=== PATIENT | female | born 1975 | race Caucasian/White ===

== ENCOUNTER 2021-05-31 05:03 | Emergency (ER) | payer BC ==
[2021-05-31] MEDS ORDERED: ROPINIROLE HCL0.5 MG PO (05:19)
== END 2021-05-31 05:55 | disposition home or self-care (01) ==
LOC: ER1 05:03
DX: Z76.0 Encounter for issue of repeat prescription (principal); E03.9 Hypothyroidism, unspecified
CPT/HCPCS: 99281